=== PATIENT | female | born 1985 | race Caucasian/White ===

== ENCOUNTER 2017-01-18 16:48 | Outpatient (CLI) | payer MEDICAID | END 2017-01-18 16:49 | disposition home or self-care (01) | LOC: LAB.R 16:48 | PROVIDERS: ATTEND Obstetrics & Gynecology | DX: Z11.3 Encounter for screening for infections with a predominantly sexual mode of transmission (principal) | CPT/HCPCS: 87491; 87591 ==

== ENCOUNTER 2017-01-25 16:18 | Outpatient (CLI) | payer MEDICAID ==
[2017-01-25 13:24] LABS: BASOPHILS % (AUTO) 0.6 %; EOSINOPHILS # (AUTO) 0.1 10^3/uL (0.0-0.7); EOSINOPHILS % (AUTO) 2.5 %; HCT - HEMATOCRIT 34.5 % (37.0-47.0); HGB - HEMOGLOBIN 12.5 g/dL (12.0-16.0); LYMPHOCYTES # (AUTO) 0.7 10^3/uL (1.5-3.5); LYMPHOCYTES % (AUTO) 13.4 %; MEAN CORPUSCULAR HEMOGLOBIN 31.6 pg (27.0-31.0); MEAN CORPUSCULAR HGB CONC 36.2 g/dL (32.0-36.0); MEAN CORPUSCULAR VOLUME 87.3 fL (81.0-99.0); MEAN PLATELET VOLUME 9.5 fL (7.9-10.8); MONOCYTES # (AUTO) 0.2 10^3/uL (0.0-1.0); MONOCYTES % (AUTO) 4.7 %; NEUTROPHILS # (AUTO) 3.8 10^3/uL (1.5-6.6); NEUTROPHILS % (AUTO) 78.8 %; NUCLEATED RED BLOOD CELLS AUTO 0.1 /100WBC; RED BLOOD COUNT 3.95 10^6/uL (4.20-5.40); RED CELL DISTRIBUTION WIDTH 13.8 % (12.0-15.0); UNCORRECTED WHITE BLOOD COUNT 4.9 x10^3/uL; WHITE BLOOD COUNT 4.9 x10^3/uL (4.8-10.8)
[2017-01-25 13:35] LABS: BILIRUBIN,URINE NEGATIVE (NEGATIVE)
[2017-01-25 13:56] LABS: WBC,URINE 0-3 /HPF (0-5)
[2017-01-26 11:13] LABS: TEST RESULT REPORT (())
== END 2017-01-25 16:19 | disposition home or self-care (01) ==
LOC: LAB.N 16:18
PROVIDERS: ATTEND Obstetrics & Gynecology
DX: Z36 Encounter for antenatal screening of mother (principal)
CPT/HCPCS: 36415; 81001; 81599; 85025; 86592; 86762; 86850; 86900; 86901; 87340; 87389

== ENCOUNTER 2017-01-30 11:40 | Emergency (ER) | payer MEDICAID ==
[2017-01-30 11:55] VITALS: BP 100/79
[2017-01-30] MEDS ORDERED: CETIRIZINE 10 MG TABLET PO STA (12:39)
[2017-01-30] MEDS ORDERED: hydrOXYzine PAMOATE 25 MG CAPSULE PO STA (12:39)
[2017-01-30] MEDS ORDERED: predniSONE 20 MG TABLET PO STA (12:39)
--- NOTE | 2017-01-30 12:42 | ED Physician Documentation ---
History of Present Illness - Stated complaint Stated Complaint: L SWOLLEN FACE - Chief complaint Chief Complaint: General - History obtained from History obtained from: Patient - History of Present Illness Timing: Other (This is a 31-year-old woman who is 11 weeks , 4 days ago she used to benzoyl peroxide on the face and the next day developed itchiness and facial swelling especially on the left side of the face and also upper lip. She denies any shortness of breath, wheezing, throat swelling. She is not taking any medications except that she tried Benadryl without relief.) Review of Systems Constitutional: denies: Fever, Chills Ears: denies: Loss of hearing, Ear pain Nose: denies: Rhinorrhea / runny nose, Congestion Throat: denies: Sore throat PD PAST MEDICAL HISTORY - Past Surgical History Past Surgical History: No - Present Medications Home Medications: Ambulatory Orders Medication Instructions Recorded Confirmed Cetirizine [ZyrTEC] 10 mg PO DAILY #7 tablet 01/30/17 Hydroxyzine Pamoate 1 - 2 tab PO Q6H PRN #20 capsule 01/30/17 predniSONE [Deltasone] 60 mg PO DAILY 3 Days 01/30/17 - Allergies Allergies/Adverse Reactions: Allergies Allergy/AdvReac Type Severity Reaction Status Date / Time No Known Drug Allergies Allergy Verified 01/30/17 11:54 - Social History Does the pt smoke?: Yes Smoking Status: Light tobacco smoker Does the pt drink ETOH?: No Does the pt have substance abuse?: No - Immunizations Immunizations are current?: Yes PD ED PE NORMAL - Vitals Vital signs reviewed: Yes - General General: Alert and oriented X 3, No acute distress - HEENT HEENT: PERRL, Other (She has difficulty with abduction and superior movement of the left thigh from prior strabismus, she says this is chronic and unchanged. There is some edema and redness of the left side of the face and periorbital region especially and mildly to the upper lip without throat swelling or obvious dental issue.) - Neck Neck: Supple, no meningeal sign - Neuro Neuro: Alert and oriented X 3, Normal speech - Psych Psych: Normal mood, Normal affect Results - Vitals Vitals: Vital Signs - 24 hr 01/30/17 11:52 Temperature 36.6 C Heart Rate 71 Respiratory 14 Rate Blood Pressure 100/79 O2 Saturation 100 Oxygen O2 Source Room air PD MEDICAL DECISION MAKING - ED course ED course: She appears to be having a dermatitis from benzoyl peroxide on the face. We discussed potential treatments for this especially in light of her first trimester . After discussion of the risks and benefits she wanted to do hydroxyzine, Zyrtec, and steroid. Departure - Departure Disposition: Home, Self Care Clinical Impression: Facial dermatitis Condition: Good Record reviewed to determine appropriate education?: Yes Instructions: Contact Dermatitis Prescriptions: predniSONE [Deltasone] 60 mg PO DAILY 3 Days Hydroxyzine Pamoate 1 - 2 tab PO Q6H PRN #20 capsule PRN Reason: Itching Cetirizine [ZyrTEC] 10 mg PO DAILY #7 tablet Comments: As discussed you can use topical hydrocortisone ointment on the face as well. Follow up with your physician in a few days if not improved.
[2017-01-30] MEDS ORDERED: predniSONE 20 MG TABLET ONE (12:49)
[2017-01-30] MEDS ORDERED: CETIRIZINE 10 MG TABLET ONE (12:49)
[2017-01-30] MEDS ORDERED: hydrOXYzine PAMOATE 25 MG CAPSULE ONE (12:50)
== END 2017-01-30 13:00 | disposition home or self-care (01) ==
LOC: ED 11:40
DX: O99.711 Diseases of the skin and subcutaneous tissue complicating pregnancy, first trimester (principal); L30.9 Dermatitis, unspecified; O99.331 Smoking (tobacco) complicating pregnancy, first trimester; Z3A.11 11 weeks gestation of pregnancy
CPT/HCPCS: 99283; A9270; J7512

== ENCOUNTER 2017-02-15 10:15 | Outpatient (CLI) | payer MEDICAID ==
[2017-02-23 09:17] LABS: TEST RESULT REPORT (())
== END 2017-02-15 10:16 | disposition home or self-care (01) ==
LOC: LAB.N 10:15
PROVIDERS: ATTEND Obstetrics & Gynecology
DX: Z36 Encounter for antenatal screening of mother (principal)
CPT/HCPCS: 36415; 81599; 84163

== ENCOUNTER 2017-03-11 13:30 | Outpatient (CLI) | payer MEDICAID ==
[2017-03-15 17:21] LABS: TEST RESULT REPORT (())
== END 2017-03-11 13:31 | disposition home or self-care (01) ==
LOC: LAB.N 13:30
PROVIDERS: ATTEND Obstetrics & Gynecology
DX: Z36 Encounter for antenatal screening of mother (principal)
CPT/HCPCS: 36415; 81511; 81599; 84163

== ENCOUNTER 2017-04-04 12:30 | Outpatient (CLI) | payer MEDICAID ==
--- NOTE | 2017-04-05 11:04 | Ultrasound Report ---
OB ULTRASOUND: 04/04/2017 CLINICAL INDICATION: anatomy. TECHNIQUE: Real-time scanning was performed with territory representative static images obtained. LAST MENSTRUAL PERIOD 11/16/2016 Clinical Age 19 weeks 6 days US Age 20 weeks 3 days EFW Had[place] 375 g EFW% Hadlock --- Heart Rate 146 bpm EDC 08/23/2017 US EDC 08/19/2017 BPD [place] 20 weeks 0 days; Mean mm 46.5 HC [place] 20 weeks 2 days; Mean mm 177.5 AC [place] 21 weeks 3 days; Mean mm 163.5 FL [place] 20 weeks 1 day; Mean mm 32.6 Presentation cephalic Placental Location --- Cervical Length 4.0 cm Amniotic Fluid 19.5 cm FINDINGS: There is a single viable intrauterine gestation, in cephalic presentation. heart rate is 144 BPM. The placenta is anterior, without evidence of previa. Amniotic fluid volume is normal, with an ALPESH of 19.5. By size, the fetus measures 20 weeks 4 days (19 weeks 6 days by LMP). The following anatomic structures were visualized and appear normal: The intracranial contents, including the ventricles and posterior fossa; the lips and orbits; the spine; the heart, including 4 chamber view and outflow tracts, and diaphragm; the abdominal contents, including the stomach, the bilateral kidneys, and urinary bladder, as well as a normal 3 vessel cord insertion; 4 limbs. No free fluid is seen. A 2.5 cm left corpus luteum is noted. IMPRESSION: SINGLE VIABLE INTRAUTERINE GESTATION, WITH SIZE IN KEEPING WITH LMP DATING. NORMAL ANATOMIC SURVEY. [facility]
== END 2017-04-04 12:31 | disposition home or self-care (01) ==
LOC: DI 12:30
PROVIDERS: ATTEND Obstetrics & Gynecology
DX: Z34.82 Encounter for supervision of other normal pregnancy, second trimester (principal)
CPT/HCPCS: 76811

== ENCOUNTER 2017-05-17 11:15 | Outpatient (CLI) | payer MEDICAID ==
[2017-05-17 12:45] LABS: HCT - HEMATOCRIT 31.7 % (37.0-47.0); HGB - HEMOGLOBIN 11.2 g/dL (12.0-16.0); MEAN CORPUSCULAR HEMOGLOBIN 33.5 pg (27.0-31.0); MEAN CORPUSCULAR HGB CONC 35.4 g/dL (32.0-36.0); MEAN CORPUSCULAR VOLUME 94.8 fL (81.0-99.0); MEAN PLATELET VOLUME 8.9 fL (7.9-10.8); RED BLOOD COUNT 3.35 10^6/uL (4.20-5.40); RED CELL DISTRIBUTION WIDTH 13.9 % (12.0-15.0); WHITE BLOOD COUNT 6.9 x10^3/uL (4.8-10.8)
== END 2017-05-17 11:16 | disposition home or self-care (01) ==
LOC: LAB.N 11:15
PROVIDERS: ATTEND Obstetrics & Gynecology
DX: Z36 Encounter for antenatal screening of mother (principal)
CPT/HCPCS: 36415; 82950; 86850

== ENCOUNTER 2017-07-19 08:00 | Outpatient (CLI) | payer MEDICAID | END 2017-07-19 23:59 | disposition home or self-care (01) | LOC: LAB.R 08:00 | PROVIDERS: ATTEND Obstetrics & Gynecology | DX: Z36.85 Encounter for antenatal screening for Streptococcus B (principal); D69.6 Thrombocytopenia, unspecified | CPT/HCPCS: 87081 ==

== ENCOUNTER 2017-08-03 09:52 | Outpatient (CLI) | payer MEDICAID ==
[2017-08-03 19:00] LABS: HCT - HEMATOCRIT 35.8 % (37.0-47.0); HGB - HEMOGLOBIN 12.4 g/dL (12.0-16.0); MEAN CORPUSCULAR HEMOGLOBIN 33.5 pg (27.0-31.0); MEAN CORPUSCULAR HGB CONC 34.7 g/dL (32.0-36.0); MEAN CORPUSCULAR VOLUME 96.5 fL (81.0-99.0); MEAN PLATELET VOLUME 9.4 fL (7.9-10.8); RED BLOOD COUNT 3.71 10^6/uL (4.20-5.40); RED CELL DISTRIBUTION WIDTH 13.8 % (12.0-15.0)
== END 2017-08-03 09:53 | disposition home or self-care (01) ==
LOC: LAB.N 09:52
PROVIDERS: ATTEND Obstetrics & Gynecology
DX: D69.6 Thrombocytopenia, unspecified (principal); Z36.85 Encounter for antenatal screening for Streptococcus B
CPT/HCPCS: 36415; 85025

== ENCOUNTER 2017-08-15 15:10 | Outpatient (CLI) | payer MEDICAID | END 2017-08-15 15:11 | disposition home or self-care (01) | LOC: LAB.R 15:10 | PROVIDERS: ATTEND Family Medicine | DX: N39.0 Urinary tract infection, site not specified (principal) | CPT/HCPCS: 87086 ==

== ENCOUNTER 2018-03-29 21:09 | Emergency (ER) | payer MEDICAID ==
[2018-03-29 21:14] VITALS: BP 103/57
[2018-03-29] MEDS ORDERED: AMOX/CLAV 875 MG/125 MG TABLET PO STA (21:39)
[2018-03-29] MEDS ORDERED: BUFFERED LIDOCAINE 10 ML SYRINGE SUBQ STA (21:39)
--- NOTE | 2018-03-29 21:40 | ED Physician Documentation ---
PD HPI UPPER EXT INJURY - Stated complaint Stated Complaint: HANG NAIL - Chief complaint Chief Complaint: Wound - History obtained from History obtained from: Patient - History of Present Illness Location: Left (She has "the hangnail from hell" on the left thumb with swelling.) Review of Systems Constitutional: denies: Fever, Chills Respiratory: reports: Reviewed and negative GI: reports: Reviewed and negative PD PAST MEDICAL HISTORY - Past Surgical History Past Surgical History: No - Present Medications Home Medications: Ambulatory Orders Medication Instructions Recorded Confirmed Cetirizine [ZyrTEC] 10 mg PO DAILY #7 tablet 01/30/17 Hydroxyzine Pamoate 1 - 2 tab PO Q6H PRN #20 capsule 01/30/17 predniSONE [Deltasone] 60 mg PO DAILY 3 Days tablet 01/30/17 Amox/Clav 875/125 [Augmentin] 1 each PO Q12H #14 tablet 03/29/18 - Allergies Allergies/Adverse Reactions: Allergies Allergy/AdvReac Type Severity Reaction Status Date / Time No Known Drug Allergies Allergy Verified 03/29/18 21:14 - Social History Does the pt smoke?: Yes Smoking Status: Never smoker Does the pt drink ETOH?: No Does the pt have substance abuse?: No - Immunizations Immunizations are current?: Yes PD ED PE NORMAL - Vitals Vital signs reviewed: Yes - General General: Alert and oriented X 3, No acute distress - Extremities Extremities: Other (On the radial side of the left thumbnail there is a paronychia.) - Neuro Neuro: Alert and oriented X 3, Normal speech Results - Vitals Vitals: Vital Signs - 24 hr 03/29/18 21:12 Temperature 36.3 C L Heart Rate 70 Respiratory 16 Rate Blood Pressure 103/57 L O2 Saturation 100 Oxygen O2 Source Room air Procedures - Abscess I&D (location) L thumb paronychia Preparation: Alcohol, Lidocaine 1% (buffered, digital block) Incision: Incised with scalpel, Purulent drainage Other: Pt tolerated well, Dressing applied PD MEDICAL DECISION MAKING - Sepsis Event Vital Signs: Vital Signs - 24 hr 03/29/18 21:12 Temperature 36.3 C L Heart Rate 70 Respiratory 16 Rate Blood Pressure 103/57 L O2 Saturation 100 Oxygen O2 Source Room air Departure - Departure Disposition: Home, Self Care Clinical Impression: Paronychia Condition: Good Record reviewed to determine appropriate education?: Yes Instructions: ED Fingernail Infec Prescriptions: Amox/Clav 875/125 [Augmentin] 1 each PO Q12H #14 tablet
== END 2018-03-29 22:09 | disposition home or self-care (01) ==
LOC: ED 21:09
DX: L03.012 Cellulitis of left finger (principal)
CPT/HCPCS: 10060; 99283; A9270